=== PATIENT | female | born 1965 | race Caucasian/White ===

== ENCOUNTER 2016-06-26 18:03 | Emergency (ER) | payer SELFPAY ==
[~2016-06-26] VITALS: Ht 162.6 cm; Wt 60.0 kg
[2016-06-26 18:15] VITALS: BP 133/76
[2016-06-26] MEDS ORDERED: ACETAMINOPHEN 325MG TABLET PO STA (18:20)
[2016-06-26] MEDS ORDERED: ONDANSETRON HCL 4MG/2ML VIAL IV ONE (18:30)
[2016-06-26] MEDS ORDERED: SODIUM CHLORIDE 0.9% 1000ML BAG (SEPSIS BOLUS) IV ONE (18:30)
[2016-06-26] MEDS ORDERED: LEVOFLOXACIN 750MG PREMIX 150 ML IV ONE (18:30)
== END 2016-06-26 19:28 | disposition left against medical advice (07) ==
LOC: ER 18:10
DX: R50.9 Fever, unspecified (principal); R00.0 Tachycardia, unspecified; R30.0 Dysuria; Z98.890 Other specified postprocedural states; Z85.3 Personal history of malignant neoplasm of breast; Z88.6 Allergy status to analgesic agent
CPT/HCPCS: 99283; Z7610; J7030